=== PATIENT | male | born 1975 | race African-American/Black ===

== ENCOUNTER 2020-05-07 12:38 | Emergency (ER) | payer OTHER | END 2020-05-07 13:25 | disposition home or self-care (01) | LOC: JVIRT 12:38 | DX: Z11.59 Encounter for screening for other viral diseases (principal) | CPT/HCPCS: C9803; Q3014-GT; U0003 ==

== ENCOUNTER 2020-05-19 10:17 | Emergency (ER) | payer OTHER | END 2020-05-19 11:02 | disposition home or self-care (01) | LOC: JVIRT 10:17 | DX: Z03.818 Encounter for observation for suspected exposure to other biological agents ruled out (principal) | CPT/HCPCS: C9803; G2012-GT; Q3014-GT; U0003 ==